=== PATIENT | male | born 1990 | race Caucasian/White ===

== ENCOUNTER 2016-08-17 14:18 | Emergency (ER) | payer OTHER ==
[~2016-08-17] VITALS: Ht 182.9 cm; Wt 70.3 kg
[2016-08-17 14:21] VITALS: TEMP 37.7; Ht 182.9 cm; Wt 70.3 kg
--- NOTE | 2016-08-17 14:58 | EMERGENCY ROOM VISIT NOTE ---
ED Visit Note First contact with patient: 14:57 Current/Historical Medications No Active Prescriptions or Reported Meds Allergies Coded Allergies: Penicillins (Verified Allergy, Intermediate, rash, 08/17/16) 08/17: spoke with rn who confirmed patient reaction to pcn was rash on his back Ciprofloxacin (Unverified Allergy, Unknown, UNKNOWN, 08/17/16) Sulfa Drugs (Unverified Allergy, Unknown, UNKNOWN, 08/17/16) Vital Signs Date Time Temp Pulse Resp B/P (MAP) Pulse Ox O2 Delivery O2 Flow Rate FiO2 08/17/16 14:21 37.7 103 17 150/87 96 Room Air Laboratory Results 08/17/16 15:45 Red Blood Count 5.04, Mean Corpuscular Volume 95.2, Mean Corpuscular Hemoglobin 33.5, Mean Corpuscular Hemoglobin Concent 35.2, Mean Platelet Volume 11.2, Neutrophils (%) (Auto) 77.5, Lymphocytes (%) (Auto) 10.3, Monocytes (%) (Auto) 11.3, Eosinophils (%) (Auto) 0.5, Basophils (%) (Auto) 0.2, Neutrophils # (Auto ) 8.71, Lymphocytes # (Auto) 1.16, Monocytes # (Auto) 1.27, Eosinophils # (Auto ) 0.06, Basophils # (Auto) 0.02 Test 08/17/16 15:45 White Blood Count 11.24 K/uL (4.8-10.8) Red Blood Count 5.04 M/uL (4.7-6.1) Hemoglobin 16.9 g/dL (14.0-18.0) Hematocrit 48.0 % (42-52) Mean Corpuscular Volume 95.2 fL (80-100) Mean Corpuscular Hemoglobin 33.5 pg (25-34) Mean Corpuscular Hemoglobin Concent 35.2 g/dl (32-36) Platelet Count 199 K/uL (130-400) Mean Platelet Volume 11.2 fL (7.4-10.4) Neutrophils (%) (Auto) 77.5 % Lymphocytes (%) (Auto) 10.3 % Monocytes (%) (Auto) 11.3 % Eosinophils (%) (Auto) 0.5 % Basophils (%) (Auto) 0.2 % Neutrophils # (Auto) 8.71 K/uL (1.4-6.5) Lymphocytes # (Auto) 1.16 K/uL (1.2-3.4) Monocytes # (Auto) 1.27 K/uL (0.11-0.59) Eosinophils # (Auto) 0.06 K/uL (0-0.5) Basophils # (Auto) 0.02 K/uL (0-0.2) RDW Standard Deviation 40.6 fL (36.4-46.3) RDW Coefficient of Variation 11.8 % (11.5-14.5) Immature Granulocyte % (Auto) 0.2 % Immature Granulocyte # (Auto) 0.02 K/uL (0.00-0.02) Medications Administered Medications (Trade) Dose Ordered Sig/Christiano Route Start Time Stop Time Status Last Admin Dose Admin Sodium Chloride 1,000 ml @ 999 mls/hr Q1H1M STAT IV 08/17/16 15:37 08/17/16 16:37 08/17/16 15:50 999 MLS/HR Morphine Sulfate (MoRPHine SULFATE INJ) 6 mg NOW STAT IV 08/17/16 15:37 08/17/16 15:40 DC 08/17/16 15:51 6 MG Cefazolin Sodium 2000 mg/Dextrose 60 ml @ 120 mls/hr TODAY@1600 ONCE IV 08/17/16 16:00 08/17/16 16:29 08/17/16 16:09 120 MLS/HR Departure Information Prescriptions No Active Prescriptions or Reported Meds Referrals No Doctor, Assigned (PCP) Patient Instructions My [facility]
[2016-08-17] MEDS ORDERED: CEFAZOLIN IV 2,000 MG/60 ML D5W IV STA (15:37)
[2016-08-17] MEDS ORDERED: SODIUM CHLORIDE 0.9% 1000ML 1,000 ML IV STA (15:37)
[2016-08-17] MEDS ORDERED: MoRPHine SULFATE 10 MG/ML CARP/VIAL IV STA ×2 (15:37→16:31)
--- NOTE | 2016-08-17 15:56 | EMERGENCY ROOM VISIT NOTE ---
ED Visit Note First contact with patient: 14:57 Staff note: I have reviewed the Patients chart and have discussed this case with my PA. I generally agree with the ED note and findings.
[2016-08-17] MEDS ORDERED: CEFAZOLIN SOD 2000 MG in DEXTROSE 5% 50ML IV ONE (16:00)
--- NOTE | 2016-08-17 16:03 | DIAGNOSTIC IMAGING REPORT ---
LEFT KNEE 3 VIEWS HISTORY:26 yearsMaledeep laceration over the inferior knee, eval FB, fx, effusion COMPARISON: None available. TECHNIQUE: Portable AP, crosstable lateral and sunrise views of the left knee. FINDINGS: There is a laceration of the infrapatellar soft tissues with multiple punctate radiopaque foreign bodies. No acute fracture or dislocation is identified. Bone mineralization is within normal limits. There is a small joint effusion. IMPRESSION: 1. No acute fracture or dislocation. 2. Large infrapatellar laceration contains multiple punctate radiodense foreign bodies. 3. Small joint effusion. The above report was generated using voice recognition software. It may contain grammatical, syntax or spelling errors. Electronically signed by: Reji Pelletier M.D. 08/17/2016 4:02 PM Dictated Date/Time: 08/17/2016 4:00 PM
[2016-08-17 16:18] LABS: BASO % 0.2 %; BASO ABS # 0.02 K/uL (0-0.2); COMPLETE YES; EOS % 0.5 %; IG% 0.2 %; LYMPH % 10.3 %; LYMPH ABS # 1.16 K/uL (1.2-3.4); MEAN CELL VOLUME 95.2 fL (80-100); MEAN CORPUSCULAR HEMOGLOBIN 33.5 pg (25-34); MEAN CORPUSCULAR HGB CONC 35.2 g/dl (32-36); MEAN PLATELET VOLUME 11.2 fL (7.4-10.4); MONO % 11.3 %; NEUT % 77.5 %; PLATELET COUNT 199 K/uL (130-400); RED BLOOD COUNT 5.04 M/uL (4.7-6.1); WHITE BLOOD COUNT 11.24 K/uL (4.8-10.8)
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
[2016-08-17 16:38] LABS: BUN/CREATININE RATIO 3.9 (10-20); CALCIUM 9.8 mg/dl (8.5-10.1); CREATININE 0.98 mg/dl (0.60-1.40)
[2016-08-17] MEDS ORDERED: DIPHTHERIA/TETANUS/PERTUSSIS 0.5 ML SYR/VIAL IM. ONE (16:45)
[2016-08-17] MEDS ORDERED: CEPH500C PO (17:14)
[2016-08-17 17:59] VITALS: BP 135/87; PULSE 78; O2SAT 98
== END 2016-08-17 18:01 | disposition home or self-care (01) ==
LOC: C.EDB 14:20 → C.EDD 18:01
DX: S81.022A Laceration with foreign body, left knee, initial encounter (principal); V18.0XXA Pedal cycle driver injured in noncollision transport accident in nontraffic accident, initial encounter; Y92.481 Parking lot as the place of occurrence of the external cause; F17.210 Nicotine dependence, cigarettes, uncomplicated